=== PATIENT | female | born 1990 | race African-American/Black ===

== ENCOUNTER 2018-08-09 08:51 | Emergency (ER) | payer OTHER ==
[2018-08-09 09:05] VITALS: BP 138/107
[2018-08-09] MEDS ORDERED: cephALEXin 250 MG CAPSULE PO STA (09:37)
[2018-08-09] MEDS ORDERED: IBUPROFEN 800 MG TABLET PO STA (09:37)
--- NOTE | 2018-08-09 09:40 | ED Physician Documentation ---
PD HPI BACK PAIN - Stated complaint Stated Complaint: LWR BACK PX - Chief complaint Chief Complaint: Back Pain - History obtained from History obtained from: Patient - History of Present Illness Timing - onset: Yesterday Timing - details: Gradual onset, Still present Location: Lower Quality: Pain Associated symptoms: No: Fever Worsened by: Movement, Palpation Similar symptoms before: Has not had sx before - Additional information Additional information: The patient is a 28-year-old [employer] female who presents with lower back pain, and the coccygeal region. Her pain started yesterday after doing hot yoga 2 days ago. She denies any other specific injury. She denies fever, dysuria or urinary, numbness or weakness. She has no history of similar symptoms in the past. Review of Systems Constitutional: denies: Fever Nose: denies: Congestion Throat: denies: Sore throat Respiratory: denies: Dyspnea, Cough GI: denies: Abdominal Pain, Nausea, Vomiting : denies: Dysuria, Incontinent Skin: denies: Rash Musculoskeletal: reports: Back pain. denies: Extremity pain Neurologic: denies: Focal weakness, Numbness, Headache PD PAST MEDICAL HISTORY - Past Medical History Neuro: None Endocrine/Autoimmune: None - Present Medications Home Medications: Ambulatory Orders Medication Instructions Recorded Confirmed Ibuprofen 800 mg PO TID PRN #20 tablet 08/09/18 cephALEXin [Cephalexin] 500 mg PO TID #20 tablet 08/09/18 - Allergies Allergies/Adverse Reactions: Allergies Allergy/AdvReac Type Severity Reaction Status Date / Time No Known Drug Allergies Allergy Verified 08/09/18 09:01 - Social History Does the pt smoke?: No Smoking Status: Never smoker PD ED PE NORMAL - Vitals Vital signs reviewed: Yes (Mild hypertension initially.) - General General: Alert and oriented X 3, Well developed/nourished - HEENT HEENT: Atraumatic - Neck Neck: No bony TTP, No adenopathy - Cardiac Cardiac: RRR - Respiratory Respiratory: No respiratory distress - Abdomen Abdomen: Soft, Non tender - Back Back: No CVA TTP - Derm Derm: Other (There is erythema over the coccygeal area, with associated tenderness to palpation, reproducing her symptoms. There is no swelling or fluctuance. There is no significant warmth to palpation.) - Extremities Extremities: No edema, No calf tenderness / cord, Other (Straight leg raise test is negative bilaterally.) - Neuro Neuro: Alert and oriented X 3, No motor deficit, No sensory deficit, Other (Deep tendon reflexes are 2+ and equal bilaterally at the patellar and Achilles tendons.) Results - Vitals Vitals: Vital Signs - 24 hr 08/09/18 08:59 Temperature 36.6 C Heart Rate 68 Respiratory 16 Rate Blood Pressure 138/107 H O2 Saturation 99 Oxygen O2 Source Room air PD MEDICAL DECISION MAKING - ED course Complexity details: considered differential, d/w patient, d/w family ED course: The patient's presentation is most consistent with cellulitis over the coccygeal region. Her examination does not reveal abscess. Treatment in the emergency department included admit cephalexin 500 mg orally and ibuprofen 800 mg orally. She is being discharged with prescriptions for both. I discussed with her and her the diagnosis, antibiotic treatment and outpatient follow-up, as well as potentially worrisome signs or symptoms that should prompt reevaluation in the emergency department. Departure - Departure Disposition: 01 Home, Self Care Clinical Impression: Cellulitis Qualifiers: Site of cellulitis: other site Qualified Code(s): L03.818 - Cellulitis of other sites Condition: Stable Instructions: ED Infec Skin Cellulitis Follow-Up: [facility] [Provider Group] Prescriptions: cephALEXin [Cephalexin] 500 mg PO TID #20 tablet Ibuprofen 800 mg PO TID PRN #20 tablet PRN Reason: Pain Comments: Take cephalexin 3 times daily as prescribed. You can use ibuprofen up to 800 mg 3 times daily if needed for pain. Follow-up with your primary physician within 1 week. Call to schedule an appointment. Return to the emergency department if you develop increasing pain, swelling, skin redness, or otherwise worsening symptoms. Forms: Activity restrictions
== END 2018-08-09 09:53 | disposition home or self-care (01) ==
LOC: ED 08:51
DX: L03.818 Cellulitis of other sites (principal)
CPT/HCPCS: 99283; A9270

== ENCOUNTER 2018-12-21 16:31 | Emergency (ER) | payer OTHER ==
[2018-12-21] MEDS ORDERED: ONDANSETRON 4 MG/2 ML VIAL IVP STA (16:54)
[2018-12-21] MEDS ORDERED: HYDROmorphone 1 MG/ML CARPUJECT IVP STA (16:54)
--- NOTE | 2018-12-21 16:54 | ED Physician Documentation ---
PD HPI ABD PAIN - Stated complaint Stated Complaint: LRQ PAIN - Chief complaint Chief Complaint: Abd Pain - History obtained from History obtained from: Patient - History of Present Illness Timing - onset: Today (28-year-old woman with Nexplanon in place, finished her menses 4 days ago. She had right lower quadrant pain that is not immediate migratory that awoke her at 4:30 AM this morning. No vaginal discharge or bleeding. She is not nauseous. No problems with her bowel movements. No history of abdominal surgeries. Pain is moderate to severe.) Review of Systems Ten Systems: 10 systems reviewed and negative Constitutional: denies: Fever, Chills Throat: denies: Dental pain / toothache, Oral lesions / sores, Sore throat Cardiac: denies: Chest pain / pressure, Palpitations Respiratory: denies: Dyspnea, Cough PD PAST MEDICAL HISTORY - Past Medical History Past Medical History: No Neuro: None Endocrine/Autoimmune: None Other Past Medical History: denies - Past Surgical History Past Surgical History: No - Present Medications Home Medications: Ambulatory Orders Medication Instructions Recorded Confirmed Ibuprofen 800 mg PO TID PRN #20 tablet 08/09/18 Ciprofloxacin HCl [Cipro] 500 mg PO BID #20 tablet 12/21/18 Hydrocodone/Acetaminophen 1 - 2 each PO Q6H PRN #10 tablet 12/21/18 [Hydrocodon-Acetaminophen 5-325] - Allergies Allergies/Adverse Reactions: Allergies Allergy/AdvReac Type Severity Reaction Status Date / Time No Known Drug Allergies Allergy Verified 12/21/18 16:40 - Social History Does the pt smoke?: Yes Smoking Status: Light tobacco smoker Does the pt drink ETOH?: No Does the pt have substance abuse?: No - Family History Family history: reports: Non contributory - Immunizations Immunizations are current?: Yes PD ED PE NORMAL - Vitals Vital signs reviewed: Yes - General General: Alert and oriented X 3, Other (uncomfortable) - HEENT HEENT: PERRL, EOMI - Neck Neck: Supple, no meningeal sign, No bony TTP - Cardiac Cardiac: RRR, No murmur - Respiratory Respiratory: No respiratory distress, Clear bilaterally - Abdomen Abdomen: Normal bowel sounds, Soft, Other (Mild TTP, RLQ, neg rovsings.) - Back Back: No CVA TTP, No spinal TTP - Derm Derm: Warm and dry - Extremities Extremities: No edema, No calf tenderness / cord - Neuro Neuro: Alert and oriented X 3, Normal speech - Psych Psych: Normal mood, Normal affect Results - Vitals Vitals: Vital Signs - 24 hr 12/21/18 12/21/18 12/21/18 16:38 17:41 18:01 Temperature 36.5 C Heart Rate 102 H 82 101 H Respiratory 20 16 18 Rate Blood Pressure 127/83 H 125/87 H 116/94 H O2 Saturation 100 95 100 12/21/18 18:20 Temperature Heart Rate 84 Respiratory 16 Rate Blood Pressure O2 Saturation 100 Oxygen O2 Source Room air - Labs Labs: Laboratory Tests 12/21/18 12/21/18 12/21/18 16:48 17:05 17:05 WBC 8.8 RBC 4.75 Hgb 13.5 Hct 40.3 MCV 84.8 MCH 28.4 MCHC 33.5 RDW 14.0 Plt Count 300 MPV 7.1 L Neut # (Auto) 5.4 Lymph # (Auto) 2.6 [place] # (Auto) 0.6 Eos # (Auto) 0.2 Baso # (Auto) 0.1 Absolute Nucleated RBC 0.01 Nucleated RBC % 0.1 Sodium 136 Potassium 3.4 L Chloride 102 Carbon Dioxide 21 Anion Gap 13.0 BUN 12 Creatinine 0.8 Estimated GFR (MDRD) 104 Glucose 79 Calcium 9.3 Total Bilirubin 0.7 AST 21 ALT 36 Alkaline Phosphatase 55 Total Protein 7.5 Albumin 4.3 Globulin 3.2 Albumin/Globulin Ratio 1.3 Lipase 31 Urine Color YELLOW Urine Clarity CLOUDY Urine pH 6.0 Ur Specific [place] 1.015 Urine Protein 100 H Urine Glucose (UA) NEGATIVE Urine Ketones >=80 H Urine Occult Blood LARGE H Urine Nitrite POSITIVE H Urine Bilirubin NEGATIVE Urine Urobilinogen 0.2 (NORMAL) Ur Leukocyte Esterase MODERATE H Urine RBC 6-10 H Urine WBC >25 H Ur Squamous Epith Cells RARE Squamous Urine Bacteria Moderate H Urine Mucus Few Strands Ur Microscopic Review INDICATED Urine Culture Comments INDICATED Urine HCG, Qual NEGATIVE - Rads (name of study) CT A/P Radiology: EMP read contemporaneously (Normal appendix, right kidney and ureter thickening, could be a pyelonephritis.) PD MEDICAL DECISION MAKING - ED course ED course: 28-year-old woman with right lower quadrant pain concerning for appendicitis but found to have pyelonephritis on imaging and urinalysis. She did have a reaction to contrast dye after CT with mild hives treated with Benadryl. Departure - Departure Disposition: 01 Home, Self Care Clinical Impression: Pyelonephritis Condition: Good Record reviewed to determine appropriate education?: Yes Instructions: Pyelonephritis Dc Prescriptions: Ciprofloxacin HCl [Cipro] 500 mg PO BID #20 tablet Hydrocodone/Acetaminophen [Hydrocodon-Acetaminophen 5-325] 1 - 2 each PO Q6H PRN #10 tablet PRN Reason: pain Comments: We will culture your urine, the results should be done in 48-72 hours. If an antibiotic change is necessary we will call you. Return if worse in the meantime, especially if you develop increasing flank pain, fevers, or cannot keep down the medication. Followup with your doctor in 2 to 3 days for recheck.
[2018-12-21 17:02] LABS: BILIRUBIN,URINE NEGATIVE (NEGATIVE); GLUCOSE, URINE (UA) NEGATIVE (NEGATIVE); KETONES,URINE (UA) >=80 mg/dL (NEGATIVE); LEUKOCYTE ESTERASE, URINE MODERATE (NEGATIVE); NITRITE,URINE POSITIVE (NEGATIVE); OCCULT BLOOD,URINE LARGE (NEGATIVE); PROTEIN,URINE 100 mg/dL (NEGATIVE); UROBILINOGEN,URINE 0.2 (NORMAL) E.U./dL (NORMAL)
[2018-12-21 17:03] LABS: CLARITY,URINE CLOUDY (CLEAR)
[2018-12-21 17:04] LABS: HCG UR QUAL NEGATIVE
[2018-12-21] MEDS ORDERED: IOVERSOL 320 100 ML VIAL IVP ONE ×2 (17:06→18:36)
[2018-12-21] MEDS ORDERED: SODIUM CHLORIDE 0.9% 1,000 ML IV ONE (17:08)
[2018-12-21 17:13] LABS: BACTERIA,URINE Moderate /HPF (None Seen); SQUAMOUS EPITHELIAL CELL,UR RARE Squamous (<= Few)
[2018-12-21 17:14] LABS: MUCUS,URINE Few Strands
[2018-12-21 17:19] LABS: BASOPHILS # (AUTO) 0.1 10^3/uL (0.0-0.1); BASOPHILS % (AUTO) 1.1 %; EOSINOPHILS # (AUTO) 0.2 10^3/uL (0.0-0.7); EOSINOPHILS % (AUTO) 1.8 %; HGB - HEMOGLOBIN 13.5 g/dL (12.0-16.0); LYMPHOCYTES # (AUTO) 2.6 10^3/uL (1.5-3.5); LYMPHOCYTES % (AUTO) 28.9 %; MEAN CORPUSCULAR HEMOGLOBIN 28.4 pg (27.0-31.0); MEAN CORPUSCULAR HGB CONC 33.5 g/dL (32.0-36.0); MEAN CORPUSCULAR VOLUME 84.8 fL (81.0-99.0); MEAN PLATELET VOLUME 7.1 fL (7.9-10.8); MONOCYTES # (AUTO) 0.6 10^3/uL (0.0-1.0); NEUTROPHILS # (AUTO) 5.4 10^3/uL (1.5-6.6); NEUTROPHILS % (AUTO) 61.2 %; PLT - PLATELET COUNT 300 10^3/uL (130-450); RED BLOOD COUNT 4.75 10^6/uL (4.20-5.40); WHITE BLOOD COUNT 8.8 x10^3/uL (4.8-10.8)
[2018-12-21 17:32] LABS: ALBUMIN 4.3 g/dL (3.2-5.5); ALBUMIN/GLOBULIN RATIO 1.3 (1.0-2.2); BILIRUBIN,TOTAL 0.7 mg/dL (0.2-1.0); CALCIUM 9.3 mg/dL (8.5-10.3); CREATININE 0.8 mg/dL (0.4-1.0); TOTAL PROTEIN 7.5 g/dL (6.7-8.2)
[2018-12-21] MEDS ORDERED: diphenhydrAMINE INJ 50 MG/ML VIAL IVP STA (18:01)
--- NOTE | 2018-12-21 18:13 | CT Report ---
Reason: IV only, RLQ pain Procedure Date: 12/21/2018 Accession Number: [id number] / [id number] Procedure: CT - Abdomen/Pelvis W CPT Code: FULL RESULT: EXAM: CT ABDOMEN AND PELVIS EXAM DATE: 12/21/2018 05:51 PM. CLINICAL HISTORY: IV only, RLQ pain. COMPARISONS: None. TECHNIQUE: Routine helical CT imaging was performed through the abdomen and pelvis. IV contrast: 100 cc Optiray 320 IV. Enteric contrast: No. Reconstructions: Coronal and sagittal. In accordance with CT protocol optimization, one or more of the following dose reduction techniques were utilized for this exam: automated exposure control, adjustment of mA and/or KV based on patient size, or use of iterative reconstructive technique. FINDINGS: Lung Bases: Unremarkable. Liver: Normal. No masses. Gallbladder/Bile Ducts: Unremarkable. Spleen: Normal. Pancreas: Normal. Adrenal Glands: Normal. Kidneys: The kidneys are normal in size. There is mild enhancement and thickening of the urothelium of the right renal pelvis and right ureter. There is mild amount of fat stranding around the right ureter. No visualized kidney stone. No ureter stone. Peritoneal Cavity/Bowel: There are a mild number of diverticula within the colon. No mechanical bowel obstruction. No localizing bowel inflammatory process. The appendix is well visualized and normal. Pelvic Organs: Urinary bladder is unremarkable. The uterus is anteverted. Vasculature: No aneurysms or other significant abnormality. Bones: No significant abnormality. Other: None. IMPRESSION: 1. Normal appendix. 2. Right kidney/ureter urothelial thickening without hydronephrosis. Differential diagnosis includes right pyelonephritis versus recently passed ureteral stone versus sequela of vesicoureteral reflux. 3. Mild colonic diverticulosis without evidence of diverticulitis. RADIA
[2018-12-21] MEDS ORDERED: cefTRIAXone 1 GM in SODIUM CHLORIDE 0.9% MINIBAG 100 ML IV STA (18:21)
[2018-12-21 19:05] VITALS: BP 126/85
== END 2018-12-21 19:05 | disposition home or self-care (01) ==
LOC: ED 16:31
DX: N12 Tubulo-interstitial nephritis, not specified as acute or chronic (principal); F17.200 Nicotine dependence, unspecified, uncomplicated
CPT/HCPCS: 36415; 74177; 80053; 81001; 81025; 83690; 85025; 87086; 96361; 96365; 96375; 99283; 99284; J1170; J1200; Q9967; 81003; 87181

== ENCOUNTER 2021-03-16 14:52 | Emergency (ER) | payer OTHER ==
[2021-03-16 15:35] LABS: BASOPHILS % (AUTO) 0.4 %; EOSINOPHILS # (AUTO) 0.3 10^3/uL (0.0-0.7); EOSINOPHILS % (AUTO) 4.3 %; HCT - HEMATOCRIT 41.3 % (37.0-47.0); HGB - HEMOGLOBIN 13.9 g/dL (12.0-16.0); LYMPHOCYTES % (AUTO) 41.7 %; MEAN CORPUSCULAR HEMOGLOBIN 29.1 pg (27.0-31.0); MEAN CORPUSCULAR HGB CONC 33.7 g/dL (32.0-36.0); MEAN CORPUSCULAR VOLUME 86.4 fL (81.0-99.0); MONOCYTES # (AUTO) 0.4 10^3/uL (0.0-1.0); MONOCYTES % (AUTO) 5.4 %; NEUTROPHILS # (AUTO) 3.5 10^3/uL (1.5-6.6); NEUTROPHILS % (AUTO) 48.1 %; PLT - PLATELET COUNT 291 10^3/uL (130-450); RED BLOOD COUNT 4.78 10^6/uL (4.20-5.40); RED CELL DISTRIBUTION WIDTH 13.2 % (12.0-15.0); WHITE BLOOD COUNT 7.2 x10^3/uL (4.8-10.8)
[2021-03-16 15:48] LABS: ALBUMIN 3.9 g/dL (3.2-5.5); ALBUMIN/GLOBULIN RATIO 1.1 (1.0-2.2); BILIRUBIN,TOTAL 0.3 mg/dL (0.2-1.0); CALCIUM 9.1 mg/dL (8.5-10.3); CREATININE 0.9 mg/dL (0.4-1.0); POTASSIUM 3.6 mmol/L (3.5-5.0); TOTAL PROTEIN 7.3 g/dL (6.7-8.2)
[2021-03-16 16:12] LABS: BILIRUBIN,URINE NEGATIVE (NEGATIVE); GLUCOSE, URINE (UA) NEGATIVE (NEGATIVE); KETONES,URINE (UA) TRACE mg/dL (NEGATIVE); LEUKOCYTE ESTERASE, URINE NEGATIVE (NEGATIVE); NITRITE,URINE NEGATIVE (NEGATIVE); OCCULT BLOOD,URINE NEGATIVE (NEGATIVE); PROTEIN,URINE TRACE mg/dL (NEGATIVE); UROBILINOGEN,URINE 0.2 (NORMAL) E.U./dL (NORMAL)
[2021-03-16 16:13] LABS: CLARITY,URINE HAZY (CLEAR); HCG UR QUAL NEGATIVE
[2021-03-16 16:17] LABS: BACTERIA,URINE Few /HPF (None Seen); MUCUS,URINE Marked Strands; RBC,URINE 0-5 /HPF (0-5); SQUAMOUS EPITHELIAL CELL,UR MANY Squamous (<= Few); WBC,URINE 0-3 /HPF (0-5)
[2021-03-16] MEDS ORDERED: HYDROcod/ACETAM 5/325 MG TABLET PO STA (16:21)
[2021-03-16] MEDS ORDERED: ONDANSETRON ODT 4 MG TABLET TL STA (16:21)
--- NOTE | 2021-03-16 16:21 | ED Physician Documentation ---
PD HPI ABD PAIN - Stated complaint Stated Complaint: ABD PX - Chief complaint Chief Complaint: Abd Pain - History obtained from History obtained from: Patient - Additional information Additional information: 30-year-old woman has been dealing with suprapubic pain for the last 3 weeks. Its been generally progressive. She was seen at hospital in [place] about a week ago. Had nitrite in the urine and few clue cells. She had a pelvic exam done without mentioned abnormalities. She was prescribed what sounds like Flagyl and Macrobid which was slightly helpful but now and more pain in our nauseous. Denies discharge. Has a approximately 5-month-old copper IUD in place. Review of Systems Ten Systems: 10 systems reviewed and negative Constitutional: denies: Fever, Chills Cardiac: denies: Chest pain / pressure, Palpitations Respiratory: denies: Dyspnea, Cough GI: reports: Abdominal Pain, Nausea. denies: Vomiting, Constipation, Diarrhea, Bloody / black stool PD PAST MEDICAL HISTORY - Past Medical History Neuro: None Endocrine/Autoimmune: None - Past Surgical History Past Surgical History: No - Present Medications Home Medications: Ambulatory Orders Medication Instructions Recorded Confirmed HYDROcod/ACETAM 5/325 [[place] 5/325] 1 - 2 tab PO Q6H PRN #15 tablet 03/16/21 Mirtazapine 15 mg PO DAILY PM 03/16/21 03/16/21 - Allergies Allergies/Adverse Reactions: Allergies Allergy/AdvReac Type Severity Reaction Status Date / Time Iodinated Contrast Media Allergy Hives Verified 03/16/21 15:15 - Social History Does the pt smoke?: Yes Smoking Status: Light tobacco smoker Does the pt drink ETOH?: No Does the pt have substance abuse?: No - Immunizations Immunizations are current?: Yes PD ED PE NORMAL - Vitals Vital signs reviewed: Yes - General General: Alert and oriented X 3, No acute distress - Cardiac Cardiac: RRR, No murmur - Abdomen Abdomen: Normal bowel sounds, Soft, Non tender, Non distended - Derm Derm: Normal color, Warm and dry - Neuro Neuro: Alert and oriented X 3, Normal speech Results - Vitals Vitals: Vital Signs - 24 hr 03/16/21 03/16/21 15:10 17:29 Temperature 36.4 C L 36.2 C L Heart Rate 102 H 71 Respiratory 14 14 Rate Blood Pressure 125/75 128/79 O2 Saturation 99 100 Oxygen O2 Source Room air - Labs Labs: Laboratory Tests 03/16/21 03/16/21 03/16/21 15:32 15:32 16:05 WBC 7.2 RBC 4.78 Hgb 13.9 Hct 41.3 MCV 86.4 MCH 29.1 MCHC 33.7 RDW 13.2 Plt Count 291 MPV 8.0 Neut # (Auto) 3.5 Lymph # (Auto) 3.0 [place] # (Auto) 0.4 Eos # (Auto) 0.3 Baso # (Auto) 0.0 Absolute Nucleated RBC 0.00 Nucleated RBC % 0.0 Sodium 134 L Potassium 3.6 Chloride 104 Carbon Dioxide 21 Anion Gap 9.0 BUN 11 Creatinine 0.9 Estimated GFR (MDRD) 89 Glucose 160 H Calcium 9.1 Total Bilirubin 0.3 AST 22 ALT 28 Alkaline Phosphatase 30 L Total Protein 7.3 Albumin 3.9 Globulin 3.4 Albumin/Globulin Ratio 1.1 Lipase 39 Urine Color YELLOW Urine Clarity HAZY Urine pH 6.0 Ur Specific [place] 1.025 Urine Protein TRACE Urine Glucose (UA) NEGATIVE Urine Ketones TRACE Urine Occult Blood NEGATIVE Urine Nitrite NEGATIVE Urine Bilirubin NEGATIVE Urine Urobilinogen 0.2 (NORMAL) Ur Leukocyte Esterase NEGATIVE Urine RBC 0-5 Urine WBC 0-3 Ur Squamous Epith Cells MANY Squamous H Urine Bacteria Few Urine Mucus Marked Strands Ur Microscopic Review INDICATED Urine Culture Comments NOT INDICATED Urine HCG, Qual NEGATIVE PD MEDICAL DECISION MAKING - ED course ED course: 30-year-old with progressive periumbilical and lower abdominal pain with negative work-up previously. Feeling better after meds here. Work-up was benign with normal CT and labs except for modestly elevated blood glucose in a nonfasting state which was discussed with patient and follow-up was advised. Departure - Departure Disposition: Home, Self Care Condition: Good Record reviewed to determine appropriate education?: Yes Instructions: ED Abdominal Pain Unkn Cause Prescriptions: HYDROcod/ACETAM 5/325 [[place] 5/325] 1 - 2 tab PO Q6H PRN #15 tablet PRN Reason: Pain Comments: Prescription was sent electronically to [facility] in [place]. Return if you worsen, [place]. As discussed the only abnormal finding of significance today was a blood sugar of 160, but you are not fasting, so consider having [place]. I am prescribing a short course of narcotic pain medication for you. These are potentially dangerous and addictive medications that should be used carefully. These medications may constipate you. Take an iwys-dzz-vosorsn stool softener (docusate) twice daily with plenty of water while taking these medications. If you go 24 hours without a bowel movement, take gnjx-skw-gueoqqa miralax, per package instructions. Do not drink or drive while taking these medications. If you received narcotic or sedating medications while in the emergency departm ent, do not drive for 24 hours. Store this medication in a safe, secure place and out of reach of children. It is a violation of federal law to give or sell this medication to another person or to use in a manner other than prescribed. The ED will not refill narcotic prescriptions, including prescriptions lost or stolen. To dispose of unwanted medications: 1. [facility] at [address] in [place] has a medication drop box. They accept prescription medications (in pill form) Friday through Friday 9:00 a.m. to 5:00 p.m. 2. [facility] [employer] accepts prescription medications (in pill form only) for disposal year round. Call for more information. 3. Contact the [facility] for the next [facility] sponsored prescription drug collection event. , [phone], or [phone]; Note that many narcotic pain relievers also contain Tylenol/acetaminophen. Please ensure that your total dose of acetaminophen from all sources does not exceed 3 g (3000 mg) per day.
--- NOTE | 2021-03-16 17:10 | CT Report ---
PROCEDURE: Abdomen/Pelvis WO INDICATIONS: abd pain TECHNIQUE: Noncontrast 5 mm thick sections acquired from the diaphragms to the symphysis. 5 mm coronal and sagi ttal reformats were then performed. For radiation dose reduction, the following was used: automated exposure control, adjustment of mA and/or kV according to patient size. COMPARISON: CT abdomen pelvis 12/21/2018 FINDINGS: Image quality: Excellent. ABDOMEN: Lung bases: Lung bases are clear. Heart size is normal. Solid organs: Liver and spleen are normal in size. Gallbladder appears markedly contracted versus n ot present. No surgical clips are identified in gallbladder was present in 2019. Pancreas is normal i n contours. No adrenal nodules. Kidneys are normal in size, without hydronephrosis or nephrolithias is. Peritoneum and bowel: Unenhanced bowel loops demonstrate normal wall thickness and caliber. No free fluid or air. Appendix demonstrates no enlargement or periappendiceal inflammation. Scattered colon ic stool is present. Nodes and vessels: No retroperitoneal or mesenteric adenopathy by size criteria. Aorta and inferior vena cava are normal in caliber. Miscellaneous: Trace fat-containing ventral hernia is noted.. PELVIS: Genitourinary: Bladder wall thickness is normal. IUD is noted. Miscellaneous: No inguinal hernias or adenopathy. Bones: No suspicious bony lesions. No vertebral body compression fractures. IMPRESSION: 1. No acute intra-abdominal or pelvic process identified. 2. Scattered colonic stool without obstruction. Reviewed by: Marlene Arroyo MD on 03/16/2021 5:08 PM PDT Approved by: Marlene Arroyo MD on 03/16/2021 5:08 PM PDT Station ID: [id number]
[2021-03-16 17:29] VITALS: BP 128/79
== END 2021-03-16 18:12 | disposition home or self-care (01) ==
LOC: ED 14:52
DX: R10.2 Pelvic and perineal pain (principal); R73.9 Hyperglycemia, unspecified; Z72.0 Tobacco use
CPT/HCPCS: 36415; 74176; 80053; 81001; 81025; 83690; 85025; 99284; A9270; Q0162; 81003; 87086

== ENCOUNTER 2021-05-05 13:44 | Emergency (ER) | payer OTHER ==
--- NOTE | 2021-05-05 14:24 | ED Physician Documentation ---
History of Present Illness - Stated complaint Stated Complaint: FEMALE - Chief complaint Chief Complaint: General - Additonal information Additional information: 31-year-old female presents the emergency department for evaluation of 1 week bad smelling vaginal discharge. She describes it as clumpy and yellow. This did follow recent unprotected sexual activity. Denies any history of STI. Denies dysuria or pelvic pain. Review of Systems Constitutional: reports: Reviewed and negative Ears: reports: Reviewed and negative Nose: reports: Reviewed and negative Throat: reports: Reviewed and negative Cardiac: reports: Reviewed and negative Respiratory: reports: Reviewed and negative GI: reports: Reviewed and negative : reports: Other (vaginal dc). denies: Unable to Void, Irregular menses, Missed period Skin: reports: Reviewed and negative Musculoskeletal: reports: Reviewed and negative PD PAST MEDICAL HISTORY - Past Medical History Past Medical History: Yes Neuro: None Endocrine/Autoimmune: None - Past Surgical History Past Surgical History: No - Present Medications Home Medications: Ambulatory Orders Medication Instructions Recorded Confirmed HYDROcod/ACETAM 5/325 [[place] 5/325] 1 - 2 tab PO Q6H PRN #15 tablet 03/16/21 Mirtazapine 15 mg PO DAILY PM 03/16/21 03/16/21 metroNIDAZOLE [Flagyl] 500 mg PO BID #14 tablet 05/05/21 - Allergies Allergies/Adverse Reactions: Allergies Allergy/AdvReac Type Severity Reaction Status Date / Time Iodinated Contrast Media Allergy Hives Verified 05/05/21 13:56 - Social History Does the pt smoke?: Yes Smoking Status: Current every day smoker Does the pt drink ETOH?: No Does the pt have substance abuse?: No - Immunizations Immunizations are current?: Yes PD ED PE EXPANDED - General General: No acute distress - Cardiac Cardiac: Regular Rate, Radial strong equal - Respiratory Respiratory: Clear to ausultation mikael - Female Female : Normal external, Vaginal Discharge (Copious thick white discharge.), Racecar Driver present. No: CMT, Adnexal Tenderness - Derm Derm: Normal color, Warm and dry - Neuro Neuro: Alert and Oriented X 3, CNII-XII intact - GCS Eye Opening: Spontaneous Motor: Obeys Commands Verbal: Oriented Total: 15 Results - Vitals Vitals: Vital Signs - 24 hr 05/05/21 13:51 Temperature 36.6 C Heart Rate 87 Respiratory 16 Rate Blood Pressure 118/79 O2 Saturation 99 Oxygen O2 Source Room air - Labs Labs: Microbiology 05/05/21 14:35 Wet Prep - Final Vaginal Laboratory Tests 05/05/21 14:10 Urine Color DARK YELLOW Urine Clarity CLOUDY Urine pH 6.0 Ur Specific [place] 1.025 Urine Protein NEGATIVE Urine Glucose (UA) NEGATIVE Urine Ketones NEGATIVE Urine Occult Blood NEGATIVE Urine Nitrite POSITIVE H Urine Bilirubin NEGATIVE Urine Urobilinogen 0.2 (NORMAL) Ur Leukocyte Esterase NEGATIVE Ur Microscopic Review INDICATED Urine Culture Comments Not Reportable Urine HCG, Qual NEGATIVE PD MEDICAL DECISION MAKING - ED course Complexity details: reviewed results, d/w patient ED course: 31-year-old female presents emergency department for evaluation of 1 week of vaginal discharge after recent unprotected sexual intercourse. We discussed the possibility of empiric treatment for chlamydia gonorrhea here in the emergency department but she did decline that. However she will be started on Flagyl for what I suspect is a bacterial vaginosis given the large amount of thick white discharge in the vault. Wet prep was positive for significant clue cells. defer treatment for UA results, given lack of symptoms. Likely contaminated Patient also reported she has been unable to feel her IUD strings. I advised very close follow-up with her FAMILY REUNIFICATION SPECIALIST regarding this as she may need to have it removed surgically. emergent return precautions discussed Departure - Departure Clinical Impression: Vaginal discharge Instructions: ED Vaginosis Bacterial Prescriptions: metroNIDAZOLE [Flagyl] 500 mg PO BID #14 tablet Comments: Rayna you are seen in the emergency department today for 1 week of vaginal discharge. You did have a lot of thick white discharge in your vagina. The wet prep that we sent showed a lot of clue cells. This is typically consistent with bacterial vaginosis. I [facility] a [facility] to [facility] [place]. Please fill the prescription begin taking twice daily as directed. We are also screen you for chlamydia and gonorrhea. If these test results are positive you will be notified. You did report that you have an IUD however we did not see the strings. This is something your primary doctor or OB should further evaluate. May need to be surgically removed in the office with your OB. If at any point you feel that your symptoms are worsening, you develop severe pelvic pain high fevers or uncontrolled vomiting then please return immediately to the ER for a second evaluation.
[2021-05-05 14:56] LABS: BILIRUBIN,URINE NEGATIVE (NEGATIVE); GLUCOSE, URINE (UA) NEGATIVE (NEGATIVE); KETONES,URINE (UA) NEGATIVE (NEGATIVE); LEUKOCYTE ESTERASE, URINE NEGATIVE (NEGATIVE); NITRITE,URINE POSITIVE (NEGATIVE); OCCULT BLOOD,URINE NEGATIVE (NEGATIVE); PROTEIN,URINE NEGATIVE (NEGATIVE); UROBILINOGEN,URINE 0.2 (NORMAL) E.U./dL (NORMAL)
[2021-05-05 15:00] LABS: CLARITY,URINE CLOUDY (CLEAR); HCG UR QUAL NEGATIVE
[2021-05-05 15:04] LABS: BACTERIA,URINE Many /HPF (None Seen); RBC,URINE 0-5 /HPF (0-5); SQUAMOUS EPITHELIAL CELL,UR FEW Squamous (<= Few); WBC,URINE 0-3 /HPF (0-5)
[2021-05-05 15:16] VITALS: BP 129/79
[2021-05-05 17:34] LABS: CHLAMYDIA TRACHOMATIS DNA NEGATIVE (NEGATIVE); NEISSERIA GONORRHOEAE DNA NEGATIVE (NEGATIVE); TRICHOMONAS VAGINALIS DNA NEGATIVE (NEGATIVE)
== END 2021-05-05 15:10 | disposition home or self-care (01) ==
LOC: ED 13:44
DX: N89.8 Other specified noninflammatory disorders of vagina (principal); Z97.5 Presence of (intrauterine) contraceptive device; F17.200 Nicotine dependence, unspecified, uncomplicated
CPT/HCPCS: 81001; 81003; 81025; 87086; 87210; 87491; 87591; 87661; 99283; 99284

== ENCOUNTER 2021-05-21 12:43 | Outpatient (CLI) | payer OTHER | END 2021-05-21 23:59 | disposition home or self-care (01) | LOC: LAB.N 12:43 | PROVIDERS: ATTEND Physician Assistant Medical | DX: J34.89 Other specified disorders of nose and nasal sinuses (principal); Z20.822 Contact with and (suspected) exposure to COVID-19 ==

== ENCOUNTER 2021-05-21 21:04 | Outpatient (CLI) | payer OTHER | END 2021-05-21 21:05 | disposition critical access hospital (66) | LOC: EMS 21:04 | DX: R43.8 Other disturbances of smell and taste (principal); R51.9 Headache, unspecified; R06.00 Dyspnea, unspecified | CPT/HCPCS: A0425; A0429 ==

== ENCOUNTER 2021-05-21 21:27 | Emergency (ER) | payer OTHER ==
--- NOTE | 2021-05-21 22:37 | ED Physician Documentation ---
History of Present Illness - Stated complaint Stated Complaint: SOA/LUCERO - Chief complaint Chief Complaint: Heent - History obtained from History obtained from: Patient - Additonal information Additional information: 31-year-old woman, previously healthy presents with shortness of breath acute in onset this evening after waking up from a nap. Patient has had symptoms of COVID-19 for the past 3 days with loss of smell and taste since Friday. She had a Covid test today but has not had the results back yet. Also with sore throat, nasal congestion, sinus headaches, body aches, fatigue, nonproductive cough. Patient states that her shortness of breath is improved significantly since she arrived in the emergency department. Denies fevers. Review of Systems Ten Systems: 10 systems reviewed and negative Constitutional: reports: Myalgias, Fatigue. denies: Fever, Chills Throat: reports: Sore throat Cardiac: denies: Chest pain / pressure Respiratory: reports: Dyspnea, Cough Skin: denies: Rash PD PAST MEDICAL HISTORY - Past Medical History Past Medical History: Yes Neuro: None Endocrine/Autoimmune: None Other Past Medical History: Insomnia - Past Surgical History Past Surgical History: Yes HEENT: Other - Present Medications Home Medications: Ambulatory Orders Medication Instructions Recorded Confirmed HYDROcod/ACETAM 5/325 [[place] 5/325] 1 - 2 tab PO Q6H PRN #15 tablet 03/16/21 Mirtazapine 15 mg PO DAILY PM 03/16/21 03/16/21 metroNIDAZOLE [Flagyl] 500 mg PO BID #14 tablet 05/05/21 - Allergies Allergies/Adverse Reactions: Allergies Allergy/AdvReac Type Severity Reaction Status Date / Time Iodinated Contrast Media Allergy Hives Verified 05/21/21 21:43 - Social History Does the pt smoke?: Yes Smoking Status: Current every day smoker Does the pt drink ETOH?: No Does the pt have substance abuse?: No - Immunizations Immunizations are current?: Yes PD ED PE NORMAL - Vitals Vital signs reviewed: Yes - General General: Alert and oriented X 3, No acute distress, Well developed/nourished - HEENT HEENT: Atraumatic, PERRL, EOMI, Moist mucous membranes, Pharynx benign, Other (Sinus congestion) - Neck Neck: Supple, no meningeal sign - Cardiac Cardiac: RRR - Respiratory Respiratory: No respiratory distress, Clear bilaterally - Abdomen Abdomen: Non tender, Non distended - Derm Derm: Normal color, Warm and dry - Extremities Extremities: No edema - Neuro Neuro: Alert and oriented X 3 Results - Vitals Vitals: Vital Signs - 24 hr 05/21/21 21:30 Temperature 36.3 C L Heart Rate 78 Respiratory 16 Rate Blood Pressure 114/85 H O2 Saturation 96 Oxygen O2 Source Room air PD MEDICAL DECISION MAKING - ED course ED course: 31-year-old woman presents with upper respiratory symptoms concerning for possible COVID-19 infection. O2 sat 100% on my physical exam. Patient without any increased work of breathing or subjective dyspnea upon my interview and exam. Symptomatic care discussed and return precautions discussed. Patient will follow up with her doctor via telehealth. Plan to isolate until her Covid test results and symptoms resolve. Departure - Departure Disposition: 01 Home, Self Care Clinical Impression: Suspected COVID-19 virus infection, Anosmia, Loss of taste, Shortness of breath Condition: Good Instructions: ED Dyspnea Shortness of Breath Comments: You were seen in the emergency department for shortness of breath. Continue to take your qexq-xvj-fyixxzf medications for your symptoms. Isolate at home since it is likely that you have COVID-19. Drink 8 to 10 glasses of water daily, sleep on your stomach, using a humidifier by the bedside at nighttime. Return to the emergency department if you have any new or worsening symptoms or other concerns. Follow-up with your doctor via telehealth.
[2021-05-21 22:48] VITALS: BP 114/82
== END 2021-05-21 22:47 | disposition home or self-care (01) ==
LOC: EDUNIT# → ED 21:27
DX: R06.02 Shortness of breath (principal); R43.8 Other disturbances of smell and taste; F17.200 Nicotine dependence, unspecified, uncomplicated; Z20.822 Contact with and (suspected) exposure to COVID-19
CPT/HCPCS: 99283; 99284

== ENCOUNTER 2021-07-20 09:04 | Emergency (ER) | payer OTHER ==
--- NOTE | 2021-07-20 09:14 | ED Physician Documentation ---
PD HPI CHEST PAIN - Stated complaint Stated Complaint: CHEST PX - Chief complaint Chief Complaint: Cardiac - History obtained from History obtained from: Patient - History of Present Illness Timing - onset: How many days ago (4) Timing - onset during: Light activity. No: Exertion Timing - duration: Days (4) Timing - details: Gradual onset, Still present (more consistent today), Intermittant (without obvious pattern to eating, moving, position, activity.) Quality: Aching, Pain Location: Substernal, Left chest Radiation: Back Improved by: No: Rest Worsened by: Movement. No: Exertion, Inspiration, Eating, Palpation Associated symptoms: Feeling faint / dizzy. No: Shortness of air, Nausea, Palpitations Similar symptoms before: Has not had sx before Recently seen: Not recently seen Review of Systems Constitutional: denies: Fever Nose: denies: Rhinorrhea / runny nose, Congestion Throat: denies: Sore throat Cardiac: reports: Chest pain / pressure. denies: Palpitations, Pedal edema, Calf pain Respiratory: denies: Dyspnea, Cough GI: denies: Abdominal Pain, Nausea, Vomiting, Diarrhea Skin: denies: Rash, Lesions Neurologic: denies: Generalized weakness, Near syncope PD PAST MEDICAL HISTORY - Past Medical History Cardiovascular: None Respiratory: None Neuro: None Endocrine/Autoimmune: None - Past Surgical History Past Surgical History: Yes HEENT: Other - Present Medications Home Medications: Ambulatory Orders Medication Instructions Recorded Confirmed Acetaminophen [Acetaminophen Extra 500 mg PO QID PRN #50 tablet 07/20/21 Strength] Citalopram [CeleXA] 20 mg PO DAILY 07/20/21 07/20/21 Ibuprofen [Motrin] 600 mg PO TID PRN #21 tab 07/20/21 Zolpidem Tartrate [Ambien] 10 mg PO HS 07/20/21 07/20/21 - Allergies Allergies/Adverse Reactions: Allergies Allergy/AdvReac Type Severity Reaction Status Date / Time Iodinated Contrast Media Allergy Hives Verified 07/20/21 09:11 - Living Situation Living Arrangement: reports: At home - Social History Does the pt smoke?: Yes Smoking Status: Current every day smoker Does the pt drink ETOH?: No Does the pt have substance abuse?: No - Family History Family history: denies: Venous thromboembolism - Immunizations Immunizations are current?: Yes PD ED PE NORMAL - Vitals Vital signs reviewed: Yes - General General: Alert and oriented X 3, No acute distress, Well developed/nourished - HEENT HEENT: Pharynx benign - Neck Neck: Supple, no meningeal sign, No adenopathy - Cardiac Cardiac: RRR, No murmur, No rub - Respiratory Respiratory: Clear bilaterally, Other (no chestwall tenderness) - Abdomen Abdomen: Soft, Non tender - Derm Derm: Normal color, Warm and dry - Extremities Extremities: No edema, No calf tenderness / cord - Neuro Neuro: Alert and oriented X 3, No motor deficit, Normal speech Results - Vitals Vitals: Oxygen O2 Source Room air - EKG (time done) 09:40 Rate: Rate (enter#) (59) Rhythm: NSR [place]: Normal Intervals: Normal [place] QRS: Normal Ischemia: Normal ST segments. No: ST elevation c/w ischemia, ST depression - Labs Labs: Laboratory Tests 07/20/21 07/20/21 07/20/21 10:08 10:08 10:08 WBC 5.9 RBC 4.37 Hgb 12.7 Hct 38.2 MCV 87.4 MCH 29.1 MCHC 33.2 RDW 13.1 Plt Count 322 MPV 8.3 Neut # (Auto) 1.9 Lymph # (Auto) 2.9 [place] # (Auto) 0.6 Eos # (Auto) 0.4 Baso # (Auto) 0.0 Absolute Nucleated RBC 0.00 Nucleated RBC % 0.0 Sodium 134 L Potassium 4.1 Chloride 100 L Carbon Dioxide 26 Anion Gap 8.0 BUN 15 Creatinine 0.8 Estimated GFR (MDRD) 101 Glucose 88 Calcium 8.7 Total Bilirubin 0.5 AST 20 ALT 23 Alkaline Phosphatase 35 L Troponin I High Sens < 2.3 L C-Reactive Protein < 1.0 Total Protein 7.1 Albumin 3.9 Globulin 3.2 Albumin/Globulin Ratio 1.2 Lipase 35 - Rads (name of study) chest xray Radiology: Prelim report reviewed (no acute process), See rad report PD MEDICAL DECISION MAKING - ED course Complexity details: reviewed results (no improvement with GI cocktail and dceveloped hives, so not to repeat it. ), re-evaluated patient (here in ED,d eveloped hives and itching without throat swelling nor dyspnea. Given Benadryl with improvement. Unclear the cause: had gotten tylenol, which she has taken regularly in the past, Mylanta and Lido viscus. Not likely causes. Consider environmental such as our sheets/certified pharmacy technician?), considered differential (not patterned with eating nor activity. No injury. No chestwall tenderness. Is smoker, has IUD, but no travel/edema/calf tender. No FH of VTE. ), d/w patient Departure - Departure Disposition: 01 Home, Self Care Clinical Impression: Musculoskeletal chest pain Chest pain Qualifiers: Chest pain type: unspecified Qualified Code(s): R07.9 - Chest pain, unspecified Allergic reaction Qualifiers: Encounter type: initial encounter Qualified Code(s): T78.40XA - Allergy, unspecified, initial encounter Condition: Stable Record reviewed to determine appropriate education?: Yes Instructions: ED Chest Pain Pleurisy Follow-Up: [facility] Suarez [Provider Group] Prescriptions: Acetaminophen [Acetaminophen Extra Strength] 500 mg PO QID PRN #50 tablet PRN Reason: Pain Ibuprofen [Motrin] 600 mg PO TID PRN #21 tab PRN Reason: Pain Comments: Your EKG, chest x-ray, blood tests are normal without any signs of obvious significant or serious cause for your pain. The character of it and location would be suggestive of some inflammation in through the chest wall muscles or around the surface of the lung. Off work today and tomorrow and then light activity for another 3 days. Use ibuprofen 3 times a day with food for the next several days to a week. To that add Tylenol every 6 hours if needed for further pain or discomfort. Follow-up with your primary care if not well resolved over the next 3 to 5 days. Regarding the hives he developed here, its unclear what the cause was. It is uncommon to have allergy to Tylenol. It would be unusual to antacid as well. At presume perhaps the lidocaine viscus. It could also be something environmental in the ER such as our blankets or robes. See if this just dissipates over the next day or so. Add Benadryl every 6 hours if needed for itchiness. If you get itchy again with subsequent doses of Tylenol then that could certainly be it. At this point I would assume not to be that since Tylenol allergy is so uncommon. Forms: Activity restrictions Discharge Date/Time: 07/20/21 12:30
[2021-07-20] MEDS ORDERED: LIDOCAINE VISCOUS 2% 15 ML UDC MM STA (09:36)
[2021-07-20] MEDS ORDERED: MAG HYDROX/AL HYDROX/SIMETH 30 ML UDC PO STA (09:36)
[2021-07-20] MEDS ORDERED: ACETAMINOPHEN 325 MG TABLET PO STA (09:36)
--- NOTE | 2021-07-20 10:03 | XRAY Report ---
PROCEDURE: Chest 1 View X-Ray INDICATIONS: Chest Pain TECHNIQUE: One view of the chest was acquired. COMPARISON: None. FINDINGS: Surgical changes and devices: None. Lungs and pleura: No pleural effusions or pneumothorax. Lungs are clear. Mediastinum: Mediastinal contours appear normal. Heart size is normal. Bones and chest wall: No suspicious bony lesions. Overlying soft tissues appear unremarkable. IMPRESSION: No acute cardiopulmonary process demonstrated radiographically. Reviewed by: David Glover MD on 07/20/2021 10:01 AM [facility] Approved by: David Glover MD on 07/20/2021 10:01 AM [facility] Station ID: [id number]
[2021-07-20 10:11] LABS: BASOPHILS % (AUTO) 0.7 %; EOSINOPHILS # (AUTO) 0.4 10^3/uL (0.0-0.7); EOSINOPHILS % (AUTO) 7.1 %; HCT - HEMATOCRIT 38.2 % (37.0-47.0); HGB - HEMOGLOBIN 12.7 g/dL (12.0-16.0); LYMPHOCYTES # (AUTO) 2.9 10^3/uL (1.5-3.5); LYMPHOCYTES % (AUTO) 49.8 %; MEAN CORPUSCULAR HEMOGLOBIN 29.1 pg (27.0-31.0); MEAN CORPUSCULAR HGB CONC 33.2 g/dL (32.0-36.0); MEAN CORPUSCULAR VOLUME 87.4 fL (81.0-99.0); MEAN PLATELET VOLUME 8.3 fL (7.9-10.8); MONOCYTES # (AUTO) 0.6 10^3/uL (0.0-1.0); MONOCYTES % (AUTO) 9.5 %; NEUTROPHILS # (AUTO) 1.9 10^3/uL (1.5-6.6); NEUTROPHILS % (AUTO) 32.7 %; PLT - PLATELET COUNT 322 10^3/uL (130-450); RED BLOOD COUNT 4.37 10^6/uL (4.20-5.40); RED CELL DISTRIBUTION WIDTH 13.1 % (12.0-15.0); WHITE BLOOD COUNT 5.9 x10^3/uL (4.8-10.8)
[2021-07-20] MEDS ORDERED: diphenhydrAMINE INJ 50 MG/ML VIAL IM STA (10:31)
[2021-07-20] MEDS ORDERED: DEXAMETHASONE 10 MG/ML VIAL PO STA (10:31)
[2021-07-20] MEDS ORDERED: CHERRY SYRUP 10 ML UDC PO ONE (10:31)
[2021-07-20 10:51] LABS: ALBUMIN 3.9 g/dL (3.2-5.5); ALBUMIN/GLOBULIN RATIO 1.2 (1.0-2.2); ALKALINE PHOSPHATASE 35 IU/L (42-121); ALT ALANINE AMINOTRANSFERASE 23 IU/L (10-60); AST ASPARTATE AMINOTRANSFERASE 20 IU/L (10-42); BILIRUBIN,TOTAL 0.5 mg/dL (0.2-1.0); BUN - BLOOD UREA NITROGEN 15 mg/dL (6-20); CALCIUM 8.7 mg/dL (8.5-10.3); CARBON DIOXIDE - CO2 26 mmol/L (21-32); CHLORIDE 100 mmol/L (101-111); CREATININE 0.8 mg/dL (0.4-1.0); GFR - MDRD 101 (>89); GLUCOSE 88 mg/dL (70-100); LIPASE 35 U/L (22-51); POTASSIUM 4.1 mmol/L (3.5-5.0); SODIUM 134 mmol/L (135-145); TOTAL PROTEIN 7.1 g/dL (6.7-8.2)
[2021-07-20 10:52] LABS: CRP - C-REACTIVE PROTEIN < 1.0 mg/dL (0-1.0)
[2021-07-20 11:41] VITALS: BP 108/76
== END 2021-07-20 12:30 | disposition home or self-care (01) ==
LOC: ED 09:04
DX: R07.89 Other chest pain (principal); L50.9 Urticaria, unspecified; T78.40XA Allergy, unspecified, initial encounter; F17.200 Nicotine dependence, unspecified, uncomplicated
CPT/HCPCS: 36415; 71045; 80053; 83690; 84484; 85025; 86140; 93005; 96372; 99284; A9270; J1200

== ENCOUNTER 2022-07-17 08:38 | Emergency (ER) | payer OTHER ==
[2022-07-17 09:02] VITALS: BP 125/73
[2022-07-17 10:10] LABS: B. PARAPERTUSSIS- RESP PCR PAN NOT DETECTED; B. PERTUSSIS- RESP PCR PANEL NOT DETECTED; C. PNEUMONIAE- RESP PCR PANEL NOT DETECTED; CORONAVIRUS 229E-RESP PCR NOT DETECTED; CORONAVIRUS HKU1-RESP PCR NOT DETECTED; CORONAVIRUS NL63-RESP PCR NOT DETECTED; CORONAVIRUS OC43-RESP PCR NOT DETECTED; HUMAN METAPNEUMOVIRUS NOT DETECTED; INFLUENZA A- RESP PCR PANEL NOT DETECTED; INFLUENZA B - RESP PCR PANEL NOT DETECTED; M. PNEUMONIAE- RESP PCR PANEL NOT DETECTED; PARAINFLUENZA VIRUS 1 NOT DETECTED; PARAINFLUENZA VIRUS 2 NOT DETECTED; PARAINFLUENZA VIRUS 3 NOT DETECTED; PARAINFLUENZA VIRUS 4 NOT DETECTED; RHINOVIRUS/ENTEROVIRUS NOT DETECTED; RSV- RESP PCR PANEL NOT DETECTED
[2022-07-17 10:11] LABS: SARS-CoV-2 -RESP PCR PANEL DETECTED
== END 2022-07-17 10:57 | disposition left against medical advice (07) ==
LOC: ED 08:38
DX: U07.1 COVID-19 (principal); Z53.21 Procedure and treatment not carried out due to patient leaving prior to being seen by health care provider
CPT/HCPCS: 87633

== ENCOUNTER 2022-12-30 14:50 | Emergency (ER) | payer OTHER ==
[2022-12-30 15:21] VITALS: BP 103/73
--- NOTE | 2022-12-30 16:56 | ED Physician Documentation ---
PD HPI BACK PAIN - Stated complaint Stated Complaint: LOWER BACK PX, - Chief complaint Chief Complaint: Back Pain - History obtained from History obtained from: Patient - History of Present Illness Timing - onset: How many months ago (has had many months to a year of chronic recurring low back pain. Hurting with ROM. Has had treatmnet with lido patches, various NSAIDs, recently ?Tizanidine muscle relaxant, prior Flexeril but very sleepy with it. Referred for PT recnetly but appts not until February. Recently has had some numbness.) Timing - details: Gradual onset, Still present, Waxing and waning Location: Lower, Right, Left Quality: Pain, Spasm Associated symptoms: Numbness (intermittently has numbness feeling to lower legs and great toes. No weakness.). No: Weakness, Incontinent of urine Recently seen: Clinic Review of Systems Constitutional: denies: Fever, Chills GI: denies: Nausea, Vomiting, Diarrhea : denies: Incontinent Skin: denies: Rash, Lesions Neurologic: denies: Focal weakness, Numbness PD PAST MEDICAL HISTORY - Past Medical History Cardiovascular: None Respiratory: None Neuro: None Endocrine/Autoimmune: None Psych: Depression, Anxiety, Post traumatic stress disorder, Other - Past Surgical History Past Surgical History: Yes HEENT: Other - Present Medications Home Medications: Ambulatory Orders Medication Instructions Recorded Confirmed Citalopram Hydrobromide [Celexa] 40 mg PO DAILY 04/19/22 04/19/22 Gabapentin [Neurontin] 300 mg PO DAILY 04/19/22 04/19/22 Naproxen 250 mg PO BID PRN #15 tablet 04/19/22 Ondansetron Odt [Zofran] 4 mg TL Q6H PRN #10 tablet 04/19/22 Zolpidem Tartrate [Ambien] 10 mg PO HS 04/19/22 04/19/22 buPROPion [Wellbutrin Xl] 150 mg PO DAILY 04/19/22 04/19/22 hydrOXYzine HCL [Hydroxyzine HCl] 25 mg PO DAILY 04/19/22 04/19/22 Acetaminophen [Acetaminophen Extra 500 mg PO QID PRN #50 tablet 12/30/22 Strength] Meloxicam [Mobic] 7.5 mg PO BID 10 Days #20 tablet 12/30/22 methocarbamoL [Robaxin] 500 mg PO TID #30 tablet 12/30/22 - Allergies Allergies/Adverse Reactions: Allergies Allergy/AdvReac Type Severity Reaction Status Date / Time Iodinated Contrast Media Allergy Hives Verified 12/30/22 15:09 - Social History Does the pt smoke?: No Smoking Status: Never smoker Does the pt drink ETOH?: Yes Does the pt have substance abuse?: No - Immunizations Immunizations are current?: Yes - POLST Patient has POLST: No PD ED PE NORMAL - Vitals Vital signs reviewed: Yes - General General: Alert and oriented X 3, Well developed/nourished, Other (appears in pain but does have reasonable ROM of the low back. points to soft tissue adjacent mid lumbar with a trigger point on each side. ) - Cardiac Cardiac: RRR, No murmur - Respiratory Respiratory: Clear bilaterally - Derm Derm: Normal color, Warm and dry, No rash - Extremities Extremities: Other (tender paralumbar muscles about level of L3. ) - Neuro Neuro: Alert and oriented X 3, No motor deficit, No sensory deficit, Other (normal patellar reflexes. ) Results - Vitals Vitals: Oxygen O2 Source Room air PD Medical Decision Making - ED course Complexity details: reviewed results (she does not have symptoms nor progression that would warrant emergent MRI of the back. To continue with [facility] progression and referrals. Can try different NSAIDs and muscle relaxant. I did trigger point injection at paralumbar muscles both sides with Kenalog and lido. ), considered differential (hs had chronic recurrent low back pain in muscles mainly without radicular symptoms until more recently. [place] providers setting her up with PT, but not scheduled until February. ), d/w patient Departure - Departure Disposition: Home, Self Care Clinical Impression: Low back pain Qualifiers: Chronicity: chronic Back pain laterality: bilateral Sciatica presence: unspecified whether sciatica present Qualified Code(s): M54.50 - Low back pain, unspecified Condition: Stable Record reviewed to determine appropriate education?: Yes Prescriptions: Acetaminophen [Acetaminophen Extra Strength] 500 mg PO QID PRN #50 tablet PRN Reason: Pain Meloxicam [Mobic] 7.5 mg PO BID 10 Days #20 tablet methocarbamoL [Robaxin] 500 mg PO TID #30 tablet Comments: It does sound frustrating to have the low back pain for so long without improvement or resolution. Unfortunately we do not have an indication for emergent MRI based on this today. Follow-up with your primary care. Common guidelines for back pain are to undergo physical therapy and such. However its usually done in a little bit more compact timeframe than what has occurred for you. Evaluation of the low back to look for structural causes such as discs etc. it is best with MRI. You could discuss with your primary care about that. At this point we can try changing to different anti-inflammatories and muscle relaxants. Continue your other usual medications. I sent prescriptions to [facility] pharmacy. Add Tylenol 500 mg 4 times daily for pain as well. We did do a muscle trigger point injection in the lower back with triamcinolone steroid and see if that will help as well. This typically will last for several days to a week or so in its effect. Discharge Date/Time: 12/30/22 18:09
[2022-12-30] MEDS ORDERED: TRIAMCINOLONE 40 MG/ML VIAL MC STA (17:14)
[2022-12-30] MEDS ORDERED: BUPIVACAINE 0.5%-EPI 1:200000 PF 30 ML VIAL SUBQ ONE (17:14)
[2022-12-30] MEDS ORDERED: lidocaine 1% 20 ML MDV SUBQ ONE (17:32)
== END 2022-12-30 18:09 | disposition home or self-care (01) ==
LOC: ED 14:50
DX: M54.50 Low back pain, unspecified (principal); Z79.899 Other long term (current) drug therapy
CPT/HCPCS: 20552; 99284

== ENCOUNTER 2024-02-14 22:05 | Outpatient (CLI) | payer OTHER | END 2024-02-14 23:59 | disposition critical access hospital (66) | LOC: EMS 22:05 | DX: S89.92XA Unspecified injury of left lower leg, initial encounter (principal); X58.XXXA Exposure to other specified factors, initial encounter; Y93.01 Activity, walking, marching and hiking; Y92.008 Other place in unspecified non-institutional (private) residence as the place of occurrence of the external cause | CPT/HCPCS: A0425; A0427 ==

== ENCOUNTER 2024-02-14 22:23 | Emergency (ER) | payer OTHER ==
--- NOTE | 2024-02-14 22:22 | ED Physician Documentation ---
PD HPI LOWER EXT INJURY - Stated complaint Stated Complaint: L LEG INJ - History obtained from History obtained from: Patient - History of Present Illness PD HPI LOW EXT INJURY LOCATION: Left - Additional information Additional information: BIBA. HPI from patient. Patient was walking down steps leading away from front door of a house, missing the last step which caused her to fall to ground. She experienced sudden onset LLE pain and deformity, unable to move LLE due to severe exacerbation of pain with movement. Denies numbness, weakness. Denies other injury including head, neck. EMS reports there was obvious deformity of left lower leg which resolved once they applied a splint. Given 4mg morphine, 4mg zofran by EMS en route Review of Systems Musculoskeletal: reports: Extremity pain, Extremity swelling, Pain with weight bearing. denies: Neck pain, Back pain, Joint pain, Joint swelling Neurologic: denies: Focal weakness, Numbness, Headache, Head injury, LOC PD PAST MEDICAL HISTORY - Past Medical History Past Medical History: No - Present Medications Home Medications: Ambulatory Orders Medication Instructions Recorded Confirmed hydrOXYzine HCL [Hydroxyzine HCl] 25 mg PO DAILY 04/19/22 04/19/22 Oxycodone HCl/Acetaminophen 1 - 2 each PO Q6H PRN #14 tablet 02/15/24 [Percocet 5-325 mg Tablet] - Allergies Allergies/Adverse Reactions: Allergies Allergy/AdvReac Type Severity Reaction Status Date / Time Iodinated Contrast Media Allergy Hives Verified 02/14/24 22:28 PD ED PE NORMAL - Vitals Vital signs reviewed: Yes - General General: Alert and oriented X 3, No acute distress, Well developed/nourished - HEENT HEENT: Atraumatic, PERRL, EOMI, Moist mucous membranes - Neck Neck: Supple, no meningeal sign, No bony TTP - Cardiac Cardiac: RRR, No murmur - Respiratory Respiratory: No respiratory distress, Clear bilaterally - Abdomen Abdomen: Soft, Non tender PD ED PE EXPANDED - Extremities Extremities: Pedal Pulses Present, Sensory intact, Vascular intact, Other (LTS intact left foot, toes. brisk capillary refill in foot, toes (left). strong DP pulse (left)) JOSÉ LE visual: 1 - swelling, tenderness (bony crepitus. no dermal defects (no abrasion, laceration, ecchymosis)) Results - Vitals Vitals: Oxygen O2 Source Room air - Labs Labs: Laboratory Tests 02/14/24 02/14/24 22:50 22:50 WBC 5.9 RBC 4.55 Hgb 12.6 Hct 37.5 MCV 82.4 MCH 27.7 MCHC 33.6 RDW 13.6 Plt Count 345 MPV 8.2 Neut # (Auto) 3.3 Lymph # (Auto) 2.2 [place] # (Auto) 0.3 Eos # (Auto) 0.1 Baso # (Auto) 0.0 Absolute Nucleated RBC 0.00 Nucleated RBC % 0.0 Sodium 141 Potassium 3.3 L Chloride 110 Carbon Dioxide 21 Anion Gap 10.0 BUN 8 Creatinine 0.8 Estimated GFR (MDRD) 100 Glucose 111 H Calcium 9.1 - Rads (name of study) left tibia xrays Relevant Findings:: Prelim report reviewed, See rad report Procedures - Splint (location) - Minor Lower extremity left Splint applied by: Physician, Nurse Type of splint: Fiberglass (orthoglass), Long leg, Posterior Other: Patient tolerated well, No complications, Neurovascular intact, Good alignment, Crutches provided PD Medical Decision Making - ED course Complexity details: reviewed results, re-evaluated patient, considered differential, d/w patient ED course: spiral, comminuted mid-shaft tibia fracture (left) on xrays. Case d/w Dr. Roach (on-call orthopedic surgeon for [facility]) and images were sent to him for his review. He says alignment is adequate for simple long-leg posterior splint at this time, crutches and NWB, d/c with appropriate pain medication/rx, follow up in his office in 2-3 days for reevaluation and likely casting. I explained this to patient and she is comfortable with this plan at this time. She required IV dilaudid x few doses during ED stay but good analgesia was achieved for majority of her ED stay (predictably, the most discomfort was durin g the splinting process, but two ED RNs and myself performed the splinting and having three participants in the procedure allowed for good maintenance of alignment during the procedure so as to minimize patient discomfort. She was held slightly longer than initially anticipated due to drowsiness resulting from the last dose of IV dilaudid given shortly after the completion of the splinting. Crutches provided and percocet e-prescribed to her pharmacy of choice. Return precautions reviewed. Again, I heavily emphasized to her that it is critical that she bear absolutely no weight on the LLE. Departure - Departure Disposition: 01 Home, Self Care Clinical Impression: Tibia fracture Condition: Good Instructions: ED Fx Lower Ext Follow-Up: Luis Roach MD [Provider Admit Priv/Credential] - Prescriptions: Oxycodone HCl/Acetaminophen [Percocet 5-325 mg Tablet] 1 - 2 each PO Q6H PRN #14 tablet PRN Reason: pain Comments: The x-rays show a significant fracture of your left tibia (mckenzie bone). I discussed your case, along with the x-ray results, with the on-call orthopedic surgeon (Dr. Roach). He recommends splinting of the left leg, crutches (YOU NEED TO BE STRICTLY NON WEIGHT-BEARING ON THE LEFT LEG), and pain medications, discharge home, and he will see you in his office within the next several days. His name and office information including the contact phone number are included within these discharge instructions. I recommend that you contact the office Friday morning when they open to arrange for the next available appointment. Be sure to tell them that the ER doctor spoke directly with Dr. Roach, and Dr. Roach indicated he wanted to see you in the office early in the week. I have electronically submitted a prescription for Percocet (narcotic/opiate pain medication) to the [facility] pharmacy in [place]. I am prescribing a short course of narcotic pain medication for you. These are potentially dangerous and addictive medications that should be used carefully. These medications may constipate you. Take an [id number] stool softener (docusate) twice daily with plenty of water while taking these medications. If you go 24 hours without a bowel movement, take eump-[id number] miralax, per package instructions. Do not drink or drive while taking these medications. If you received narcotic or sedating medications while in the emergency d epartment, do not drive for 24 hours. Store this medication in a safe, secure place and out of reach of children. It is a violation of federal law to give or sell this medication to another person or to use in a manner other than prescribed. The ED will not refill narcotic prescriptions, including prescriptions lost or stolen. To dispose of unwanted medications: 1. [facility] at [address] in [place] has a medication drop box. They accept prescription medications (in pill form) Friday through Friday 9:00 a.m. to 5:00 p.m. 2. [facility] accepts prescription medications (in pill form only) for disposal year round. Call for more information. 3. Contact the [facility] for the next [facility] sponsored prescription drug collection event. , [phone], or [phone]; Forms: PCP List Discharge Date/Time: 02/15/24 02:12
[2024-02-14] MEDS: HYDROmorphone 1 MG/ML CARPUJECT IVP STA ×2 (22:31→23:53)
[2024-02-14] MEDS: SODIUM CHLORIDE 0.9% 1,000 ML IV STA (22:39)
[2024-02-14 22:45] VITALS: O2SAT 100
--- NOTE | 2024-02-14 22:49 | XRAY Report ---
PROCEDURE: Tib/Fib LT INDICATIONS: injury, obvious deformity TECHNIQUE: 2 views of the tibia and fibula were acquired. COMPARISON: None. FINDINGS: Bones: Moderately displaced and comminuted fracture of the proximal tibial shaft. Soft tissues: No suspicious calcifications. IMPRESSION: Moderately displaced and comminuted fracture of the proximal tibial shaft. Reviewed by: Varinder Cordoba MD on 02/14/2024 10:47 PM PDT Approved by: Varinder Cordoba MD on 02/14/2024 10:47 PM PDT Station ID: [id number]
[2024-02-14 23:02] LABS: BASOPHILS % (AUTO) 0.5 %; EOSINOPHILS # (AUTO) 0.1 10^3/uL (0.0-0.7); EOSINOPHILS % (AUTO) 1.5 %; HCT - HEMATOCRIT 37.5 % (37.0-47.0); HGB - HEMOGLOBIN 12.6 g/dL (12.0-16.0); LYMPHOCYTES # (AUTO) 2.2 10^3/uL (1.5-3.5); LYMPHOCYTES % (AUTO) 36.3 %; MEAN CORPUSCULAR HEMOGLOBIN 27.7 pg (27.0-31.0); MEAN CORPUSCULAR HGB CONC 33.6 g/dL (32.0-36.0); MEAN CORPUSCULAR VOLUME 82.4 fL (81.0-99.0); MEAN PLATELET VOLUME 8.2 fL (7.9-10.8); MONOCYTES # (AUTO) 0.3 10^3/uL (0.0-1.0); MONOCYTES % (AUTO) 5.4 %; NEUTROPHILS # (AUTO) 3.3 10^3/uL (1.5-6.6); NEUTROPHILS % (AUTO) 55.8 %; PLT - PLATELET COUNT 345 10^3/uL (130-450); RED BLOOD COUNT 4.55 10^6/uL (4.20-5.40); RED CELL DISTRIBUTION WIDTH 13.6 % (12.0-15.0); WHITE BLOOD COUNT 5.9 x10^3/uL (4.8-10.8)
[2024-02-14 23:15] LABS: CALCIUM 9.1 mg/dL (8.5-10.3); CREATININE 0.8 mg/dL (0.6-1.3); POTASSIUM 3.3 mmol/L (3.5-4.5)
[2024-02-15] MEDS: oxyCODONE/ACET 5/325 Prepack 4 PO STA (00:33)
[2024-02-15] MEDS ORDERED: HYDROmorphone 1 MG/ML CARPUJECT ONE (01:04)
[2024-02-15] MEDS ORDERED: KETOROLAC 30 MG/ML VIAL ONE (01:04)
[2024-02-15] MEDS ORDERED: ONDANSETRON 4 MG/2 ML VIAL ONE (01:09)
[2024-02-15] MEDS: HYDROmorphone 1 MG/ML CARPUJECT IVP STA (01:13)
[2024-02-15] MEDS: KETOROLAC 30 MG/ML VIAL IVP STA (01:13)
[2024-02-15] MEDS: ONDANSETRON 4 MG/2 ML VIAL IVP STA (01:27)
[2024-02-15 01:31] VITALS: BP 119/79
== END 2024-02-15 02:12 | disposition home or self-care (01) ==
LOC: EDUNIT# → ED 22:23
DX: S82.252A Displaced comminuted fracture of shaft of left tibia, initial encounter for closed fracture (principal); W10.9XXA Fall (on) (from) unspecified stairs and steps, initial encounter
CPT/HCPCS: 29505; 36415; 73590; 80048; 85025; 96374; 96375; 96376; 99283; 99284; J1170

== ENCOUNTER 2024-02-16 04:41 | Outpatient (CLI) | payer OTHER | END 2024-02-16 23:59 | disposition EMS.NT | LOC: EMS 04:41 | DX: M79.661 Pain in right lower leg (principal) ==

== ENCOUNTER 2024-02-24 10:08 | Outpatient (CLI) | payer OTHER ==
--- NOTE | 2024-02-24 12:04 | XRAY Report ---
PROCEDURE: Tib/Fib LT INDICATIONS: LEFT LEG PAIN TECHNIQUE: 2 views of the tibia and fibula were acquired. COMPARISON: Tibia-fibula dated 02/14/2024. FINDINGS: Bones: Limited study due to overlying cast and due to osteopenia. Comminuted fractures of the tibia is identified. Fracture lucencies may extend into the tibial plateau best seen on lateral view. Cannot exclude concurrent [place] fracture as seen on lateral view. Soft tissues: Limited evaluation due to overlying cast. IMPRESSION: 1. Severely comminuted fibular fracture again seen. Fracture lucencies appear to extend into the tibi al plateau 2. Cannot exclude [place] fracture. If indicated, additional radiographs of the foot are also recommend ed. Reviewed by: Ariel Gallo MD on 02/24/2024 12:02 PM PDT Approved by: Ariel Gallo MD on 02/24/2024 12:02 PM PDT Station ID: [id number]
== END 2024-02-24 10:09 | disposition home or self-care (01) ==
LOC: DI 10:08
PROVIDERS: ATTEND Orthopaedic Surgery
DX: S82.252A Displaced comminuted fracture of shaft of left tibia, initial encounter for closed fracture (principal); M85.862 Other specified disorders of bone density and structure, left lower leg